=== PATIENT | female | born 1965 | race African-American/Black ===

== ENCOUNTER 2021-02-28 14:55 | Emergency (ER) | payer OTHER, MEDICARE, MEDICAID | END 2021-02-28 17:40 | disposition home or self-care (01) | LOC: CSHERS 14:55 | DX: S16.1XXA Strain of muscle, fascia and tendon at neck level, initial encounter (principal); E66.9 Obesity, unspecified; J45.909 Unspecified asthma, uncomplicated; M41.9 Scoliosis, unspecified; I10 Essential (primary) hypertension; Z79.899 Other long term (current) drug therapy; V89.2XXA Person injured in unspecified motor-vehicle accident, traffic, initial encounter | CPT/HCPCS: 72125 ==